=== PATIENT | male | born 1960 | race Caucasian/White ===

== ENCOUNTER → 2016-12-16 | Outpatient (CLI) | payer SELFPAY | END | disposition home or self-care (01) | LOC: RAD 06:55 | PROVIDERS: ATTEND Homeopath | DX: Z51.11 Encounter for antineoplastic chemotherapy (principal); Z45.2 Encounter for adjustment and management of vascular access device; C61 Malignant neoplasm of prostate | CPT/HCPCS: 36569; 76937; 77001; C1751 ==